=== PATIENT | female | born 1985 ===

== ENCOUNTER 2025-02-24 10:49 | Outpatient (CLI) | payer OTHER | END 2025-02-24 10:50 | disposition home or self-care (01) | LOC: PRENATAL 10:49 | PROVIDERS: ATTEND Obstetrics & Gynecology Maternal & Fetal Medicine | DX: O44.00 Complete placenta previa NOS or without hemorrhage, unspecified trimester (principal); O09.529 Supervision of elderly multigravida, unspecified trimester; O26.879 Cervical shortening, unspecified trimester; Z3A.21 21 weeks gestation of pregnancy ==